=== PATIENT | female | born 1960 | race Caucasian/White ===

== ENCOUNTER 2017-03-22 14:43 | Observation (INO) | payer BC ==
[~2017-03-22] VITALS: Ht 162.6 cm; Wt 55.3 kg
[2017-03-22] MEDS ORDERED: ONDANSETRON PF 4 MG/2 ML VIAL. IV ONE (15:15)
[2017-03-22] MEDS ORDERED: IV NORMAL SALINE 1000ML BAG 1,000 ML IV ONE (15:45)
[2017-03-22 15:49] LABS: CALCIUM 9.1 mg/dL (8.5-10.1); CREATININE 0.6 mg/dL (0.6-1.0); GFR 102.7
[2017-03-22 15:53] LABS: POTASSIUM 2.9 mmol/L (3.5-5.1)
--- NOTE | 2017-03-22 16:05 | PHYS DOC ---
Past Medical History Past Medical History: High Cholesterol Additional Past Medical Histor: CHRONIC DIZZINESS Past Surgical History: Hysterectomy Additional Past Surgical Histo: COLON RESECTION Alcohol Use: Rarely Drug Use: None Adult General Chief Complaint Chief Complaint: NAUSEA/VOMITING/DIARRHA HPI HPI Patient is a 56 year old female who presents with acute onset nausea and multiple episodes of vomiting since drinking herbal detox substance this morning. Patient states she was taking a detox to clean her system of the poisons. Patient has been unable to keep foods or fluids down since drinking substance. She reports lightheaded and dizziness and near. Ports occasional abdominal cramping. No constipation or diarrhea. No other acute symptoms or complaints. Review of Systems Review of Systems Review symptoms as per history of present illness. All other review of symptoms are negative Current Medications Current Medications Current Medications Medications (Trade) Dose Ordered Sig/Subha Start Time Stop Time Status Last Admin Dose Admin Ondansetron HCl (Zofran) 8 mg 1X ONCE 03/22/17 15:15 03/22/17 15:17 DC 03/22/17 15:33 8 MG Potassium Chloride (Klor-Con) 40 meq 1X ONCE 03/22/17 16:15 03/22/17 16:16 DC 03/22/17 16:14 40 MEQ Sodium Chloride 1,000 ml @ 1,000 mls/hr 1X ONCE 03/22/17 15:45 03/22/17 16:44 DC 03/22/17 15:50 1,000 MLS/HR Allergies Allergies Allergies Coded Allergies Type Severity Reaction Last Updated Verified No Known Drug Allergies 03/22/17 No Physical Exam Physical Exam Constitutional: Well developed, well nourished, fatigued, non-toxic appearance. [] HENT: Normocephalic, atraumatic, bilateral external ears normal, oropharynx moist, no oral exudates, nose normal. [] Eyes: PERRL, wearing sunglasses. [] Neck: Normal range of motion, no tenderness, supple, no stridor. [] Cardiovascular:Heart rate regular rhythm, no murmur [] Lungs & Thorax: Bilateral breath sounds clear to auscultation [] Abdomen: Bowel sounds normal, soft, nondistended nontender. [] Skin: Warm, dry, no erythema, no rash. [] Back: No tenderness. [] Extremities: No tenderness, no cyanosis, no clubbing, ROM intact, no edema. [] Neurologic: Alert and oriented X 3, normal motor function, normal sensory function, no focal deficits noted. [] Psychologic: Affect, flat. [] Current Patient Data Vital Signs Vital Signs Date Time Temp Pulse Resp B/P (MAP) Pulse Ox O2 Delivery O2 Flow Rate FiO2 03/22/17 15:02 97.4 70 16 104/54 (71) 98 Room Air 97.4 Lab Values Laboratory Tests Test 03/22/17 15:25 Sodium Level 128 mmol/L (136-145) L Potassium Level 2.9 mmol/L (3.5-5.1) *L Chloride Level 92 mmol/L (98-107) L Carbon Dioxide Level 24 mmol/L (21-32) Anion Gap 12 (6-14) Blood Urea Nitrogen 10 mg/dL (7-20) Creatinine 0.6 mg/dL (0.6-1.0) Estimated GFR (Cockcroft-Gault) 102.7 Glucose Level 166 mg/dL (70-99) H Calcium Level 9.1 mg/dL (8.5-10.1) Laboratory Tests 03/22/17 15:25 EKG EKG [] Radiology/Procedures Radiology/Procedures [] Course & Med Decision Making Course & Med Decision Making Pertinent Labs and Imaging studies reviewed. (See chart for details) [IV fluids and antiemetics given. Potassium replaced. Patient tolerates oral intake, but continues to feel weak and nauseated and does not feel comfortable going home. Will admit to the hospital service for further evaluation and treatment..] Dragon Disclaimer Dragon Disclaimer This electronic medical record was generated, in whole or in part, using a voice recognition dictation system. Departure Departure Impression: Primary Impression: Hypokalemia Additional Impressions: Hyponatremia Nausea & vomiting Disposition: ADMITTED INPATIENT Admitting Physician: Glenn Baires Condition: STABLE Problem Qualifiers RADHA SALDANA DO Mar 22, 2017 16:05
[2017-03-22] MEDS ORDERED: POTASSIUM CHLORIDE 20 MEQ TABLET.ER. PO ONE ×2 (16:15→21:00)
[2017-03-22] MEDS ORDERED: [UNRECOGNIZED DRUG - OTHER] IV ONE (17:45)
[2017-03-22] MEDS ORDERED: POTASSIUM CL IV ONE (17:45)
[2017-03-22 17:51] LABS: BASO % 0 % (0-3); EOS % 0 % (0-3); HEMATOCRIT 39.1 % (36.0-47.0); HEMOGLOBIN 13.4 g/dL (12.0-15.5); LYMPH # 0.4 x10^3/uL (1.0-4.8); LYMPH % 6 % (24-48); MEAN CORPUSCULAR HEMOGLOBIN 34 pg (25-35); MEAN CORPUSCULAR HGB CONC 34 g/dL (31-37); MEAN CORPUSCULAR VOLUME 99 fL (79-100); MONO % 4 % (0-9); NEUT % 91 % (31-73); PLATELET COUNT 193 x10^3/uL (140-400); RED BLOOD COUNT 3.96 x10^6/uL (3.50-5.40); RED CELL DISTRIBUTION WIDTH 13.8 % (11.5-14.5)
[2017-03-22] MEDS ORDERED: ONDANSETRON PF 4 MG/2 ML VIAL. IV PRN ×2 (18:15→19:00)
[2017-03-22 19:00] VITALS: BP 109/48
[2017-03-22] MEDS ORDERED: traMADol 50 MG TABLET PO PRN (19:00)
[2017-03-22] MEDS ORDERED: MORPHINE SULFATE 2 MG/ML DISP.SYRIN. IV PRN (19:00)
[2017-03-22] MEDS ORDERED: ACETAMINOPHEN 325 MG TABLET. PO PRN (19:00)
[2017-03-22] MEDS ORDERED: DOCUSATE SODIUM 100 MG CAPSULE. PO PRN (19:00)
[2017-03-22] MEDS ORDERED: MAGNESIUM SULFATE 4GM 100 ML IV ONE (19:00)
[2017-03-22] MEDS ORDERED: hydrALAZINE 20 MG/ML VIAL. IVP PRN (19:00)
--- NOTE | 2017-03-22 19:06 | PDOC1 ---
History and Physical Date of Admission Date of Admission 03/22/17 Identification/Chief Complaint Chief Complaint N/V Problems: Source Source: Chart review, Patient History of Present Illness History of Present Illness HPI HPI Patient is a 56 year old female who presents with acute onset nausea and multiple episodes of vomiting TOday. pt said she was ok yesterday, denies eating anything wrong. Pt took some herbal detox substance this morning to clean her system of the poisons , then about 2hs later, started to have N/V, about 7 times of vomiting, no bloody or greenish. She also has some lightheaded and weakness. denies fever, chills, cough ,sob, diarrhea. no Abd pain. in ER, k 2.9 , NA 128. Past Medical History Cardiovascular: Hyperlipidemia Past Surgical History Past Surgical History colon resection Past Surgical History: Hysterectomy Family History Family History: Hypertension Social History Smoke: No ALCOHOL: social Drugs: None Current Problem List Problem List Problems Medical Problems: (1) Hypokalemia Status: Acute (2) Hyponatremia Status: Acute (3) Nausea & vomiting Status: Acute Current Medications Current Medications Current Medications Medications (Trade) Dose Ordered Sig/Subha Start Time Stop Time Status Last Admin Dose Admin Ondansetron HCl (Zofran) 4 mg PRN Q8HRS PRN 03/22/17 18:15 03/23/17 18:14 Potassium Chloride/Sodium Chloride 5,000 ml @ 125 mls/hr 1X ONCE 03/22/17 17:45 03/24/17 09:44 03/22/17 18:11 125 MLS/HR Potassium Chloride (Klor-Con) 40 meq 1X ONCE 03/22/17 21:00 03/22/17 21:01 Sodium Chloride 1,000 ml @ 1,000 mls/hr 1X ONCE 03/22/17 15:45 03/22/17 16:44 DC 03/22/17 15:50 1,000 MLS/HR Allergies Allergies Allergies Coded Allergies Type Severity Reaction Last Updated Verified No Known Drug Allergies 03/22/17 No ROS Review of System CONSTITUTIONAL: No fever or chills EYES: No recent changes SKIN: No rash or itching CARDIOVASCULAR: No chest pain, syncope, palpitations, or edema RESPIRATORY: No SOB or cough GASTROINTESTINAL: + nausea, vomiting . no abdominal pain NEUROLOGICAL: No headaches or weakness ENDOCRINE: No cold or heat intolerance GENITOURINARY: No urgency or frequency of urination MUSCULOSKELETAL: No back pain or joint pain LYMPHATICS: No enlarged lymph nodes PSYCHIATRIC: No anxiety or depression Physical Exam Physical Exam GEN.: No apparent distress. Alert and oriented. HEENT: Head is normocephalic, atraumatic NECK: Supple. LUNGS: Clear to auscultation. HEART: RRR, S1, S2 present. Peripheral pulses intact ABDOMEN: Soft, nontender. Positive bowel sounds. EXTREMITIES: Without any cyanosis. NEUROLOGIC: Normal speech, normal tone PSYCHIATRIC: Normal affect, normal mood. SKIN: No ulcerations Vitals Vitals Vital Signs Date Time Temp Pulse Resp B/P (MAP) Pulse Ox O2 Delivery O2 Flow Rate FiO2 03/22/17 18:00 62 109/55 (73) 100 Room Air 03/22/17 15:02 97.4 16 97.4 Labs Labs Laboratory Tests Test 03/22/17 15:25 03/22/17 15:30 White Blood Count 7.0 x10^3/uL (4.0-11.0) Red Blood Count 3.96 x10^6/uL (3.50-5.40) Hemoglobin 13.4 g/dL (12.0-15.5) Hematocrit 39.1 % (36.0-47.0) Mean Corpuscular Volume 99 fL (79-100) Mean Corpuscular Hemoglobin 34 pg (25-35) Mean Corpuscular Hemoglobin Concent 34 g/dL (31-37) Red Cell Distribution Width 13.8 % (11.5-14.5) Platelet Count 193 x10^3/uL (140-400) Neutrophils (%) (Auto) 91 % (31-73) Lymphocytes (%) (Auto) 6 % (24-48) Monocytes (%) (Auto) 4 % (0-9) Eosinophils (%) (Auto) 0 % (0-3) Basophils (%) (Auto) 0 % (0-3) Neutrophils # (Auto) 6.4 x10^3uL (1.8-7.7) Lymphocytes # (Auto) 0.4 x10^3/uL (1.0-4.8) Monocytes # (Auto) 0.3 x10^3/uL (0.0-1.1) Eosinophils # (Auto) 0.0 x10^3/uL (0.0-0.7) Basophils # (Auto) 0.0 x10^3/uL (0.0-0.2) Sodium Level 128 mmol/L (136-145) Potassium Level 2.9 mmol/L (3.5-5.1) Chloride Level 92 mmol/L (98-107) Carbon Dioxide Level 24 mmol/L (21-32) Anion Gap 12 (6-14) Blood Urea Nitrogen 10 mg/dL (7-20) Creatinine 0.6 mg/dL (0.6-1.0) Estimated GFR (Cockcroft-Gault) 102.7 Glucose Level 166 mg/dL (70-99) Calcium Level 9.1 mg/dL (8.5-10.1) Magnesium Level 1.5 mg/dL (1.8-2.4) Laboratory Tests Test 03/22/17 15:25 03/22/17 15:30 White Blood Count 7.0 x10^3/uL (4.0-11.0) Red Blood Count 3.96 x10^6/uL (3.50-5.40) Hemoglobin 13.4 g/dL (12.0-15.5) Hematocrit 39.1 % (36.0-47.0) Mean Corpuscular Volume 99 fL (79-100) Mean Corpuscular Hemoglobin 34 pg (25-35) Mean Corpuscular Hemoglobin Concent 34 g/dL (31-37) Red Cell Distribution Width 13.8 % (11.5-14.5) Platelet Count 193 x10^3/uL (140-400) Neutrophils (%) (Auto) 91 % (31-73) Lymphocytes (%) (Auto) 6 % (24-48) Monocytes (%) (Auto) 4 % (0-9) Eosinophils (%) (Auto) 0 % (0-3) Basophils (%) (Auto) 0 % (0-3) Neutrophils # (Auto) 6.4 x10^3uL (1.8-7.7) Lymphocytes # (Auto) 0.4 x10^3/uL (1.0-4.8) Monocytes # (Auto) 0.3 x10^3/uL (0.0-1.1) Eosinophils # (Auto) 0.0 x10^3/uL (0.0-0.7) Basophils # (Auto) 0.0 x10^3/uL (0.0-0.2) Sodium Level 128 mmol/L (136-145) Potassium Level 2.9 mmol/L (3.5-5.1) Chloride Level 92 mmol/L (98-107) Carbon Dioxide Level 24 mmol/L (21-32) Anion Gap 12 (6-14) Blood Urea Nitrogen 10 mg/dL (7-20) Creatinine 0.6 mg/dL (0.6-1.0) Estimated GFR (Cockcroft-Gault) 102.7 Glucose Level 166 mg/dL (70-99) Calcium Level 9.1 mg/dL (8.5-10.1) Magnesium Level 1.5 mg/dL (1.8-2.4) VTE Prophylaxis Ordered VTE Prophylaxis Devices: Yes VTE Pharmacological Prophylaxi: No Assessment/Plan Assessment/Plan N/V after taking herbal substance HLD hypokalemia hypomagnesemia hyponatremia chronic dizziness plan: clear liquid diet ivf replete K, mag labs tmr gi ppx need home meds ROBERT MC MD Mar 22, 2017 19:06
[2017-03-22 20:42] LABS: PLT ESTIMATE ADEQUATE (ADEQUATE)
[2017-03-22] MEDS ORDERED: FAMOTIDINE 20 MG/2 ML VIAL IVP SCH (21:00)
[2017-03-22] MEDS ORDERED: verapamil PO (22:11)
[2017-03-22] MEDS ORDERED: ZINC50TA33 PO (22:11)
[2017-03-22] MEDS ORDERED: ACYC400T PO (22:11)
[2017-03-22] MEDS ORDERED: AZAT50TA PO ×2 (22:11)
[2017-03-22] MEDS ORDERED: HYDR25TA9 PO (22:11)
[2017-03-22] MEDS ORDERED: MIRT15TA3 PO (22:11)
[2017-03-22] MEDS ORDERED: IBUP-1027 PO (22:11)
[2017-03-22] MEDS ORDERED: MECL25TA3 PO (22:11)
[2017-03-22 23:00] VITALS: BP 162/81
--- NOTE | 2017-03-22 23:31 | ACF ---
Admission Forms Criteria HYPONATREMIA; HYPERNATREMIA; HYPOKALEMIA; HYPERKALEMIA; HYPOCALCEMIA; HYPERCALCEMIA Clinical Indications for Inpatient Care (Place 'X' for any and all applicable criteria): Ongoing inpatient care may be indicated for ANY ONE of the following [G](1)(2)(3 )(5): [X]I. Hyponatremia with ANY ONE of the following: [X]a) Sodium less than 130 mEq/L (mmol/L) (new) (6)(22) [ ]b) Sodium less than 135 mEq/L (mmol/L) with ANY ONE of the following: [ ]i) Severe medical etiology requiring inpatient management (eg, heart failure, hypovolemia) [ ]ii) Altered mental status [ ]iii) Seizures [ ]II. Hypernatremia with ANY ONE of the following: [ ]a) Sodium greater than 155 mEq/L (mmol/L) [ ]b) Sodium greater than 150 mEq/L (mmol/L) with ANY ONE of the following: [ ] i) Altered mental status [ ]ii) Seizures [ ]iii) Severe medical etiology (eg, hypovolemia, diabetes insipidus) [ ]iv) Severe weakness [ ]v) Severe medical etiology (eg, hemolysis, infection, drug overdose) [ ]III. Hypokalemia with ANY ONE of the following: [ ]a) Potassium less than 2.5 mEq/L (mmol/L) despite outpatient and emergency treatment [ ]b) Potassium less than 3.0 mEq/L (mmol/L) with ANY ONE of the following: [ ]i) Weakness [ ]ii) Cardiac abnormality (eg, arrhythmia, conduction disturbance) [ ]iii) Cardiac ischemia [ ]iv) Ileus [ ]v) Ongoing medical cause requiring inpatient management. ( e.g., acute renal wasting, SIADH) [ ]vi) Other severe symptoms [ ] IV. Hyperkalemia with ANY ONE of the following: [ ]a) Potassium greater than 6.5 mEq/L (mmol/L) [ ]b) Potassium greater than 5 mEq/L (mmol/L) with ANY ONE of the following: [ ]i) Severe ECG findings [H] [ ]ii) Acute worsening of renal failure (creatinine greater than 2.5 mg/dL (221 micromoles/L) or significant elevation for age and size) [ ] V. Hypocalcemia with ANY ONE of the following: [ ]a) Calcium less than 7 mg/dL (1.75 mmol/L) despite outpatient and emergency treatment(19) [ ]b) Calcium less than 8 mg/dL (2 mmol/L) with significant symptoms or findings; examples include: [ ]i) Cardiac abnormality (eg, arrhythmia or conduction disturbance) [ ]ii) Altered mental status [ ]iii) Seizures [ ]iv) Breathing difficulty [ ]v) Muscle spasms [ ]. Hypercalcemia with ANY ONE of the following: [ ]a) Calcium greater than 14 mg/dL (3.5 mmol/L) [ ]b) Calcium greater than 12 mg/dL (3 mmol/L) with ANY ONE of the following: [ ]i) Significant dehydration or hypovolemia as indicated by ANY ONE of the following(2): [ ]1. Clinically significant dehydration as indicated by ANY ONE of the following: [ ]A. Acute loss of weight from baseline (5% of body weight in adults, 9% in pediatric patients) [ ]B. Hemodynamic instability [ ]C. Acute renal failure [ ]D. Serum sodium greater than 150 mEq/L (mmol/L) [ ]2) Dehydration that is persistent indicated by ALL of the following: [ ]A. Oral rehydration therapy not tolerated or insufficient to adequately correct dehydration [ ]B. Appropriate intravenous treatment (eg, fluids ) does not readily correct dehydration ie, after 12 to 24 hours of treatment) [ ]ii) Significant symptoms or findings; examples include: [ ]1) Altered mental status [ ]2) Cardiac abnormality (eg, arrhythmia, conduction disturbance) [ ]3) Cardiac abnormality (eg, arrhythmia, conduction disturbance) The original [facility] content created by [facility] has been revised. The portions of the content which have been revised are identified through the use of italic text or in bold, and [facility] has neither reviewed nor approved the modified material. All other unmodified content is copyright [facility] [employer] Please see references footnoted in the original [facility] edition 2016 Admission Criteria Met?: Yes AMELIA LINDSEY Mar 22, 2017 23:31
[2017-03-23 03:20] VITALS: BP 114/53
[2017-03-23 04:12] LABS: BASO % 0 % (0-3); EOS % 0 % (0-3); HEMATOCRIT 37.3 % (36.0-47.0); HEMOGLOBIN 13.3 g/dL (12.0-15.5); LYMPH # 0.6 x10^3/uL (1.0-4.8); LYMPH % 6 % (24-48); MEAN CORPUSCULAR HEMOGLOBIN 35 pg (25-35); MEAN CORPUSCULAR HGB CONC 36 g/dL (31-37); MEAN CORPUSCULAR VOLUME 98 fL (79-100); MONO % 12 % (0-9); NEUT % 82 % (31-73); PLATELET COUNT 179 x10^3/uL (140-400); RED CELL DISTRIBUTION WIDTH 14.4 % (11.5-14.5)
[2017-03-23 04:25] LABS: CALCIUM 8.2 mg/dL (8.5-10.1); CREATININE 0.7 mg/dL (0.6-1.0); GFR 85.9; POTASSIUM 4.7 mmol/L (3.5-5.1)
[2017-03-23 07:00] VITALS: BP 96/44
--- NOTE | 2017-03-23 12:02 | EKG ---
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
--- NOTE | 2017-03-23 12:08 | PDOC ---
PROGRESS NOTES Chief Complaint Chief Complaint hypokalemia hypomagnesemia hyponatremia Nausea with vomiting PMH: hld colon resection hysterectomy chronic dizziness tonsillectomy adenoidectomy History of Present Illness History of Present Illness Pt sitting comfortably in side chair, reports she feels much better today and requesting discharge. Labs: K 4.7 Vitals Vitals Vital Signs Date Time Temp Pulse Resp B/P (MAP) Pulse Ox O2 Delivery O2 Flow Rate FiO2 03/23/17 07:00 99.1 73 18 96/44 (61) 96 Room Air 99.1 Physical Exam General: Alert, Oriented X3, Cooperative Heart: Regular rate, Normal S1, Normal S2 Lungs: Clear, Other (no crackles, no wheezes) Abdomen: Soft, No tenderness Extremities: No clubbing, No cyanosis Skin: No rashes, No breakdown Labs LABS Laboratory Tests Test 03/22/17 15:25 03/22/17 15:30 03/23/17 03:25 White Blood Count 7.0 x10^3/uL (4.0-11.0) 11.0 x10^3/uL (4.0-11.0) Red Blood Count 3.96 x10^6/uL (3.50-5.40) 3.80 x10^6/uL (3.50-5.40) Hemoglobin 13.4 g/dL (12.0-15.5) 13.3 g/dL (12.0-15.5) Hematocrit 39.1 % (36.0-47.0) 37.3 % (36.0-47.0) Mean Corpuscular Volume 99 fL (79-100) 98 fL (79-100) Mean Corpuscular Hemoglobin 34 pg (25-35) 35 pg (25-35) Mean Corpuscular Hemoglobin Concent 34 g/dL (31-37) 36 g/dL (31-37) Red Cell Distribution Width 13.8 % (11.5-14.5) 14.4 % (11.5-14.5) Platelet Count 193 x10^3/uL (140-400) 179 x10^3/uL (140-400) Neutrophils (%) (Auto) 91 % (31-73) 82 % (31-73) Lymphocytes (%) (Auto) 6 % (24-48) 6 % (24-48) Monocytes (%) (Auto) 4 % (0-9) 12 % (0-9) Eosinophils (%) (Auto) 0 % (0-3) 0 % (0-3) Basophils (%) (Auto) 0 % (0-3) 0 % (0-3) Neutrophils # (Auto) 6.4 x10^3uL (1.8-7.7) 9.1 x10^3uL (1.8-7.7) Lymphocytes # (Auto) 0.4 x10^3/uL (1.0-4.8) 0.6 x10^3/uL (1.0-4.8) Monocytes # (Auto) 0.3 x10^3/uL (0.0-1.1) 1.3 x10^3/uL (0.0-1.1) Eosinophils # (Auto) 0.0 x10^3/uL (0.0-0.7) 0.0 x10^3/uL (0.0-0.7) Basophils # (Auto) 0.0 x10^3/uL (0.0-0.2) 0.0 x10^3/uL (0.0-0.2) Segmented Neutrophils % 86 % (35-66) Band Neutrophils % 6 % (0-9) Lymphocytes % 2 % (24-48) Monocytes % 6 % (0-10) Platelet Estimate Adequate (ADEQUATE) Sodium Level 128 mmol/L (136-145) 139 mmol/L (136-145) Potassium Level 2.9 mmol/L (3.5-5.1) 4.7 mmol/L (3.5-5.1) Chloride Level 92 mmol/L (98-107) 106 mmol/L (98-107) Carbon Dioxide Level 24 mmol/L (21-32) 26 mmol/L (21-32) Anion Gap 12 (6-14) 7 (6-14) Blood Urea Nitrogen 10 mg/dL (7-20) 9 mg/dL (7-20) Creatinine 0.6 mg/dL (0.6-1.0) 0.7 mg/dL (0.6-1.0) Estimated GFR (Cockcroft-Gault) 102.7 85.9 Glucose Level 166 mg/dL (70-99) 92 mg/dL (70-99) Calcium Level 9.1 mg/dL (8.5-10.1) 8.2 mg/dL (8.5-10.1) Magnesium Level 1.5 mg/dL (1.8-2.4) Review of Systems Review of Systems no nausea/vomiting no fever Assessment and Plan Assessmemt and Plan Problems Medical Problems: (1) Hypokalemia Status: Acute (2) Hyponatremia Status: Acute (3) Nausea & vomiting Status: Acute Nausea and vomiting after taking herbal detox substance Hypokalemia Hypomagnesemia hyponatremia 1. Electrolytes repleted, BMP normal today. 2. Continue to advance diet as tolerated 3. Continue home meds 4. Discharge to home 5. F/up with PCP 1 week Problems: Comment Review of Relevant I have reviewed the following items evette (where applicable) has been applied. Labs Laboratory Tests Test 03/22/17 15:25 03/22/17 15:30 03/23/17 03:25 White Blood Count 7.0 x10^3/uL (4.0-11.0) 11.0 x10^3/uL (4.0-11.0) Red Blood Count 3.96 x10^6/uL (3.50-5.40) 3.80 x10^6/uL (3.50-5.40) Hemoglobin 13.4 g/dL (12.0-15.5) 13.3 g/dL (12.0-15.5) Hematocrit 39.1 % (36.0-47.0) 37.3 % (36.0-47.0) Mean Corpuscular Volume 99 fL (79-100) 98 fL (79-100) Mean Corpuscular Hemoglobin 34 pg (25-35) 35 pg (25-35) Mean Corpuscular Hemoglobin Concent 34 g/dL (31-37) 36 g/dL (31-37) Red Cell Distribution Width 13.8 % (11.5-14.5) 14.4 % (11.5-14.5) Platelet Count 193 x10^3/uL (140-400) 179 x10^3/uL (140-400) Neutrophils (%) (Auto) 91 % (31-73) 82 % (31-73) Lymphocytes (%) (Auto) 6 % (24-48) 6 % (24-48) Monocytes (%) (Auto) 4 % (0-9) 12 % (0-9) Eosinophils (%) (Auto) 0 % (0-3) 0 % (0-3) Basophils (%) (Auto) 0 % (0-3) 0 % (0-3) Neutrophils # (Auto) 6.4 x10^3uL (1.8-7.7) 9.1 x10^3uL (1.8-7.7) Lymphocytes # (Auto) 0.4 x10^3/uL (1.0-4.8) 0.6 x10^3/uL (1.0-4.8) Monocytes # (Auto) 0.3 x10^3/uL (0.0-1.1) 1.3 x10^3/uL (0.0-1.1) Eosinophils # (Auto) 0.0 x10^3/uL (0.0-0.7) 0.0 x10^3/uL (0.0-0.7) Basophils # (Auto) 0.0 x10^3/uL (0.0-0.2) 0.0 x10^3/uL (0.0-0.2) Segmented Neutrophils % 86 % (35-66) Band Neutrophils % 6 % (0-9) Lymphocytes % 2 % (24-48) Monocytes % 6 % (0-10) Platelet Estimate Adequate (ADEQUATE) Sodium Level 128 mmol/L (136-145) 139 mmol/L (136-145) Potassium Level 2.9 mmol/L (3.5-5.1) 4.7 mmol/L (3.5-5.1) Chloride Level 92 mmol/L (98-107) 106 mmol/L (98-107) Carbon Dioxide Level 24 mmol/L (21-32) 26 mmol/L (21-32) Anion Gap 12 (6-14) 7 (6-14) Blood Urea Nitrogen 10 mg/dL (7-20) 9 mg/dL (7-20) Creatinine 0.6 mg/dL (0.6-1.0) 0.7 mg/dL (0.6-1.0) Estimated GFR (Cockcroft-Gault) 102.7 85.9 Glucose Level 166 mg/dL (70-99) 92 mg/dL (70-99) Calcium Level 9.1 mg/dL (8.5-10.1) 8.2 mg/dL (8.5-10.1) Magnesium Level 1.5 mg/dL (1.8-2.4) Laboratory Tests Test 03/22/17 15:25 03/22/17 15:30 03/23/17 03:25 White Blood Count 7.0 x10^3/uL (4.0-11.0) 11.0 x10^3/uL (4.0-11.0) Red Blood Count 3.96 x10^6/uL (3.50-5.40) 3.80 x10^6/uL (3.50-5.40) Hemoglobin 13.4 g/dL (12.0-15.5) 13.3 g/dL (12.0-15.5) Hematocrit 39.1 % (36.0-47.0) 37.3 % (36.0-47.0) Mean Corpuscular Volume 99 fL (79-100) 98 fL (79-100) Mean Corpuscular Hemoglobin 34 pg (25-35) 35 pg (25-35) Mean Corpuscular Hemoglobin Concent 34 g/dL (31-37) 36 g/dL (31-37) Red Cell Distribution Width 13.8 % (11.5-14.5) 14.4 % (11.5-14.5) Platelet Count 193 x10^3/uL (140-400) 179 x10^3/uL (140-400) Neutrophils (%) (Auto) 91 % (31-73) 82 % (31-73) Lymphocytes (%) (Auto) 6 % (24-48) 6 % (24-48) Monocytes (%) (Auto) 4 % (0-9) 12 % (0-9) Eosinophils (%) (Auto) 0 % (0-3) 0 % (0-3) Basophils (%) (Auto) 0 % (0-3) 0 % (0-3) Neutrophils # (Auto) 6.4 x10^3uL (1.8-7.7) 9.1 x10^3uL (1.8-7.7) Lymphocytes # (Auto) 0.4 x10^3/uL (1.0-4.8) 0.6 x10^3/uL (1.0-4.8) Monocytes # (Auto) 0.3 x10^3/uL (0.0-1.1) 1.3 x10^3/uL (0.0-1.1) Eosinophils # (Auto) 0.0 x10^3/uL (0.0-0.7) 0.0 x10^3/uL (0.0-0.7) Basophils # (Auto) 0.0 x10^3/uL (0.0-0.2) 0.0 x10^3/uL (0.0-0.2) Segmented Neutrophils % 86 % (35-66) Band Neutrophils % 6 % (0-9) Lymphocytes % 2 % (24-48) Monocytes % 6 % (0-10) Platelet Estimate Adequate (ADEQUATE) Sodium Level 128 mmol/L (136-145) 139 mmol/L (136-145) Potassium Level 2.9 mmol/L (3.5-5.1) 4.7 mmol/L (3.5-5.1) Chloride Level 92 mmol/L (98-107) 106 mmol/L (98-107) Carbon Dioxide Level 24 mmol/L (21-32) 26 mmol/L (21-32) Anion Gap 12 (6-14) 7 (6-14) Blood Urea Nitrogen 10 mg/dL (7-20) 9 mg/dL (7-20) Creatinine 0.6 mg/dL (0.6-1.0) 0.7 mg/dL (0.6-1.0) Estimated GFR (Cockcroft-Gault) 102.7 85.9 Glucose Level 166 mg/dL (70-99) 92 mg/dL (70-99) Calcium Level 9.1 mg/dL (8.5-10.1) 8.2 mg/dL (8.5-10.1) Magnesium Level 1.5 mg/dL (1.8-2.4) Medications Current Medications Ondansetron HCl (Zofran) 8 mg 1X ONCE IV Last administered on 03/22/17t 15:33; Start 03/22/17 at 15:15; Stop 03/22/17 at 15:17; Status DC Sodium Chloride 1,000 ml @ 1,000 mls/hr 1X ONCE IV Last administered on 15:50; Start 03/22/17 at 15:45; Stop 03/22/17 at 16:44; Status DC Potassium Chloride (Klor-Con) 40 meq 1X ONCE PO Last administered on 03/22/17 16:14; Start 03/22/17 at 16:15; Stop 03/22/17 at 16:16; Status DC Potassium Chloride/Sodium Chloride 5,000 ml @ 125 mls/hr 1X ONCE IV Last administered on 03/22/17 18:11; Start 03/22/17 at 17:45; Stop 03/23/17 at 10:38; Status DC Ondansetron HCl (Zofran) 4 mg PRN Q8HRS PRN IV NAUSEA/VOMITING; Start 03/22/17 at 18:15; Stop 03/23/17 at 10:38; Status DC Potassium Chloride (Klor-Con) 40 meq 1X ONCE PO Last administered on 03/22/17 21:09; Start 03/22/17 at 21:00; Stop 03/22/17 at 21:01; Status DC Magnesium Sulfate/ Dextrose 100 ml @ 25 mls/hr 1X ONCE IV Last administered on 03/22/17 20:14; Start 03/22/17 at 19:00; Stop 03/22/17 at 22:59; Status DC Acetaminophen (Tylenol) 650 mg PRN Q6HRS PRN PO FEVER; Start 03/22/17 at 19:00; Stop 03/23/17 at 10:38; Status DC Ondansetron HCl (Zofran) 4 mg PRN Q6HRS PRN IV NAUSEA/VOMITING 1ST CHOICE; Start 03/22/17 at 19:00; Stop 03/23/17 at 10:38; Status DC Morphine Sulfate 2 mg PRN Q2HR PRN IV PAIN SEVERE; Start 03/22/17 at 19:00; Stop 03/23/17 at 10:38; Status DC Tramadol HCl (Ultram) 50 mg PRN Q6HRS PRN PO PAIN MILD TO MOD; Start 03/22/17 at 19:00; Stop 03/23/17 at 10:38; Status DC Hydralazine HCl (Apresoline) 10 mg PRN Q4HRS PRN IVP ELEVATED BP, SEE COMMENTS ; Start 03/22/17 at 19:00; Stop 03/23/17 at 10:38; Status DC Docusate Sodium (Colace) 100 mg PRN DAILY PRN PO CONSTIPATION; Start 03/22/17 at 19:00; Stop 03/23/17 at 10:38; Status DC Famotidine (Pepcid) 20 mg QHS IVP Last administered on 03/22/17t 21:08; Start at 21:00; Stop 03/23/17 at 10:38; Status DC Active Scripts Active Reported Meclizine Hcl 25 Mg Tablet 1 Tab PO PRN Q6HRS Ibuprofen 400 Mg Tablet 400 Mg PO PRN Q6HRS PRN Zinc (Zinc Amino Acid Chelate) 50 Mg Tablet 50 Mg PO DAILY Mirtazapine 15 Mg Tablet 0.5 Tab PO QHS [verapamil] 180 PO DAILY Azathioprine 50 Mg Tablet 2 Tab PO HS Azathioprine 50 Mg Tablet 1 Tab PO DAILY Hydrochlorothiazide Tablet (Hydrochlorothiazide) 25 Mg Tablet 1 Tab PO DAILY Acyclovir 400 Mg Tablet 400 Mg PO DAILY Vitals/I & O Vital Sign - Last 24 Hours 03/22/17 03/22/17 03/22/17 03/22/17 15:02 15:30 16:00 17:00 Temp 97.4 97.4 Pulse 70 58 62 68 Resp 16 B/P (MAP) 104/54 (71) 110/56 (74) 117/56 (76) 114/55 (74) Pulse Ox 98 100 100 100 O2 Delivery Room Air Room Air Room Air Room Air 03/22/17 03/22/17 03/22/17 03/22/17 18:00 19:00 20:20 23:00 Temp 97.5 97.9 97.5 97.9 Pulse 62 70 76 Resp 20 20 B/P (MAP) 109/55 (73) 109/48 (68) 162/81 (108) Pulse Ox 100 100 100 O2 Delivery Room Air Room Air Room Air Room Air 03/23/17 03/23/17 03:20 07:00 Temp 98.1 99.1 98.1 99.1 Pulse 71 73 Resp 20 18 B/P (MAP) 114/53 (73) 96/44 (61) Pulse Ox 99 96 O2 Delivery Room Air Room Air MALIA FAY III, DO Mar 23, 2017 12:08
--- NOTE | 2017-03-25 11:28 | DS ---
DATE OF DISCHARGE: 03/23/2017 ADMISSION DIAGNOSIS: Hypokalemia secondary to nausea and vomiting secondary to [id number] supplement for weight loss. HOSPITAL COURSE: The patient is a pleasant 56-year-old female who drank a product called "Brhntt55," basically is to be detoxify the body. After that she got sick. She had nausea and vomiting, was very weak. She came in, she was hypokalemic. We admitted the patient, gave her IV fluids and replaced her potassium. Next morning, she was fine to be discharged home. DISPOSITION: Home. ACTIVITY: As tolerated. DIET: Low sodium. MEDICATIONS: Please see the MRAD. TOTAL TIME: 34 minutes. MALIA FAY DO DR: AMAYA/elle JOB#: [id number] / [id number]
== END 2017-03-23 10:30 | disposition home or self-care (01) ==
LOC: ER 14:43 → 4 NORTH 17:00
PROVIDERS: ADMIT Internal Medicine; ATTEND Internal Medicine
DX: R11.2 Nausea with vomiting, unspecified (principal); E87.6 Hypokalemia; E78.5 Hyperlipidemia, unspecified; E83.42 Hypomagnesemia; E87.1 Hypo-osmolality and hyponatremia; R42 Dizziness and giddiness; E78.00 Pure hypercholesterolemia, unspecified; Z90.710 Acquired absence of both cervix and uterus; Z82.49 Family history of ischemic heart disease and other diseases of the circulatory system
CPT/HCPCS: 36415; 80048; 83735; 85007; 85025; 93005; 96361; 96365; 96366; 96375; 99285; G0378; J2405; J3475; J3480; J7030; S0028; G0379